=== PATIENT | male | born 1955 | race Caucasian/White ===

== ENCOUNTER → 2021-05-20 | Day surgery (SDC) | payer OTHER ==
[~2021-05-20] VITALS: Ht 170.2 cm; Wt 78.9 kg
[~2021-05-20] MED LIST: ALLOPURINOL100 MG PO; HYDROCHLOROTH12.5 MG PO; LOPID600 MG PO; LOPRESSOR50 MG PO; LOW DOSE ASPIRI81 MG PO; OMEPRAZOLE40 MG PO
[2021-05-20 07:09] LABS: HEMOGLOBIN 12.7 gm/dl (14.0-17.5); RED BLOOD COUNT 3.89 M/UL (4.20-5.50); WHITE BLOOD COUNT 6.4 K/UL (4.5-11.0)
[2021-05-20 07:29] LABS: BUN/CREATININE RATIO 16 (0-10)
== END | disposition home or self-care (01) ==
LOC: OR 06:14
PROVIDERS: Surgery
DX: C85.12 Unspecified B-cell lymphoma, intrathoracic lymph nodes (principal); K21.9 Gastro-esophageal reflux disease without esophagitis; I10 Essential (primary) hypertension; E78.5 Hyperlipidemia, unspecified; F17.210 Nicotine dependence, cigarettes, uncomplicated; Z79.82 Long term (current) use of aspirin; Z79.899 Other long term (current) drug therapy; Z88.0 Allergy status to penicillin; Z87.2 Personal history of diseases of the skin and subcutaneous tissue
CPT/HCPCS: 36415; 77001; 80048; 85027; 93005; C1769; C1788; J1100; J1642; J2001; J2250; J2405; J2704; J3010; J3370; J7030; J7040; J7070; J7120

== ENCOUNTER → 2021-08-08 | Outpatient (CLI) | payer OTHER | LOC: CT 08:40 | DX: C85.95 Non-Hodgkin lymphoma, unspecified, lymph nodes of inguinal region and lower limb (principal) | CPT/HCPCS: 71260; Q9967 ==

== ENCOUNTER → 2022-06-04 | Outpatient (CLI) | payer OTHER ==
[2022-06-04 12:49] LABS: HEMOGLOBIN 12.7 gm/dl (14.0-17.5); RED BLOOD COUNT 3.56 M/UL (4.20-5.50)
== END ==
LOC: CT 12:18
PROVIDERS: Internal Medicine Hematology & Oncology
DX: C85.95 Non-Hodgkin lymphoma, unspecified, lymph nodes of inguinal region and lower limb (principal)
CPT/HCPCS: 36415; 71260; 80053; 83615; 85025; Q9967